=== PATIENT | female | born 1995 | race Caucasian/White ===

== ENCOUNTER 2016-11-02 00:46 | Emergency (ER) | payer BC ==
[2016-11-02] MEDS ORDERED: LIDOCAINE HCL 20 ML UDC PO ONE (01:04)
[2016-11-02] MEDS ORDERED: MAG HYDROX/ALUMINUM HYD/SIMETH 30 ML UDC PO ONE (01:04)
[2016-11-02] MEDS ORDERED: PANTOPRAZOLE SODIUM 40 MG TABLET.EC PO ONE (01:04)
[2016-11-02] MEDS ORDERED: SUCRALFATE 1 G/10 ML UDC PO ONE (01:07)
[2016-11-02] MEDS ORDERED: PANTOPRAZOLE SODIUM 40 MG TABLET.EC ONE (01:07)
--- NOTE | 2016-11-02 01:34 | ERNOTE ---
Chest Pain/Cardiac HPI Date of Service: 11/02/16 Chief Complaint: Chest Pain Time Seen by Provider: 11/02/16 01:25 Source: patient Exam Limitations: no limitations Immunizations: IMMUNIZATION HX Immunizations Up to Date Yes History of Influenza Vaccine No Hx Pneumococcal Vaccination No Allergies/Adverse Reactions: Allergies No Known Allergies Allergy (Verified 11/02/16 00:54) Home Medications: HOME MEDICATIONS Pantoprazole Sodium [Protonix] 20 mg PO DAILY #20 tab 11/02/16 [Last Taken Unknown] Narrative: 20 year old with epigastric pain since 1000h. The pain radiates to the RUQ and LUQ, mild to moderate. Nothing increases or decreases the pain. Denies any shortness of breath. No history of GERD, gall bladder or pancreatic disease. No complaints of N/V/D and has not had similar symptoms previously. Tried Tums earlier today but it did not resolve the pain. Timing: constant Severity/Quality: mild, moderate Location: epigastric Chest Pain Radiation: other - RUQ and LUQ Modifying Factors - Improves: Present: nothing Modifying Factors - Worsens: Present: nothing Review of Systems - Review of Systems Constitutional: Present: no symptoms reported EYE: Present: no symptoms reported ENT: Present: no symptoms reported Respiratory: Present: no symptoms reported Cardiology: Present: no symptoms reported Gastrointestinal/Abdominal: Present: no symptoms reported Genitourinary: Present: no symptoms reported Musculoskeletal: Present: no symptoms reported Skin: Present: no symptoms reported Neurological: Present: no symptoms reported Endocrine: Present: no symptoms reported Hematologic/Lymphatic: Present: no symptoms reported Psych: Present: no symptoms reported - Patient's Past Medical History Patient History - Medical: No pertinent hx Patient History - Cardiac/Respiratory: No pertinent hx Patient History - Cancer: No Hx of Cancer Patient History - Surgical Procedures: No surgical history Patient History - Other: None LMP (Calendar): 10/17/16 - Social History Living Situations: home Abuse History: No History of abuse Psych History: No pertinent hx Smoking Status: Never smoker Alcohol Use: none Drug Use: none - Immunizations Immunizations Up to Date: Yes Hx Pneumococcal Vaccination: No History of Influenza Vaccine: No Physical Exam - Physical Exam General Appearance: Present: no apparent distress Eye Exam: Normal inspection: bilateral Ears, Nose, Throat: Present: normal ENT inspection Neck: Present: normal inspection, supple Respiratory: Present: normal breath sounds Cardiovascular/Chest: Present: regular rate, rhythm Gastrointestinal/Abdominal: Present: no organomegaly, tenderness - at the epigastrium on deep palpation that exacerbatest the pain.. Absent: guarding Back Exam: Present: normal inspection Extremity Exam: Present: normal inspection Neurological Exam: Present: alert, oriented Skin Exam: Present: normal color ED Progress - Vital Signs Patient's Vital Signs:: I have reviewed the patient's vital signs. Vital Signs: Vital Signs 11/02/16 00:50 Temperature 36.8 C Pulse Rate 76 Respiratory 16 Rate Blood Pressure 134/88 O2 Sat by Pulse 100 Oximetry - EKG EKG: NSR EKG read: Interp. by me EKG Comments: rate 67, normal axis - Progress/Reassessment Chief Complaint: Chest Pain Progress:: Improved Progress Note-Subjective: 11/02/16 01:32 There was immediate relief of the discomfort after the administration of the GI cocktail. Departure - Departure Clinical Impression: GERD (gastroesophageal reflux disease) Disposition: Home self-care Condition: Good Instructions: Heartburn Print Language: [place] Referrals: Briana Rosenthal MD [Primary Care Provider] - Prescriptions: Pantoprazole Sodium [Protonix] 20 mg PO DAILY #20 tab
[2016-11-02 02:34] VITALS: BP 101/64
== END 2016-11-02 01:55 | disposition home or self-care (01) ==
LOC: ER 00:46
DX: K21.9 Gastro-esophageal reflux disease without esophagitis (principal)